=== PATIENT | female | born 1975 | race Caucasian/White ===

== ENCOUNTER 2022-10-19 15:50 | Emergency (ER) | payer MEDICAID ==
[2022-10-19 16:45] LABS: CHLORIDE,CL 101 mmol/L (98-107); SODIUM,NA 140 mmol/L (136-145)
[2022-10-19 16:47] LABS: ANION GAP 16.6 mmol/L (5-15); ESTIMATED GFR 90 mL/min (>=60)
[2022-10-19 16:51] VITALS: BP 131/98; PULSE 106
[2022-10-19 17:01] LABS: CORONAVIRUS COVID-19 NAA NEGATIVE (NEGATIVE)
[2022-10-19 17:02] LABS: RESPIRATORY SYNCYTIAL VIR NAA NEGATIVE (NEGATIVE)
[2022-10-19] MEDS ORDERED: predniSONE 20 MG Tab PO ONE (17:16)
== END 2022-10-19 17:35 | disposition home or self-care (01) ==
LOC: SUPCPDRO 15:50 → VM.ED 15:50
DX: R07.89 Other chest pain (principal); I10 Essential (primary) hypertension; K21.9 Gastro-esophageal reflux disease without esophagitis; F17.200 Nicotine dependence, unspecified, uncomplicated; E66.9 Obesity, unspecified; Z68.33 Body mass index [BMI] 33.0-33.9, adult; Z88.6 Allergy status to analgesic agent; Z88.2 Allergy status to sulfonamides; Z79.899 Other long term (current) drug therapy; Z20.822 Contact with and (suspected) exposure to COVID-19
CPT/HCPCS: 0241U; 71045; 80053; 84484; 85025; 93005; 93010; 99284; 99285; J7512

== ENCOUNTER 2023-06-04 09:00 | Inpatient (IN) | payer MEDICAID ==
[2023-06-04] MEDS ORDERED: Flumazenil 0.1 MG/ML 5 ML MDV IVPUSH PRN (11:22)
[2023-06-04 11:41] LABS: BASOPHILS PERCENT AUTO 0.5 % (0.2-1.2); EOSINOPHILS ABSOLUTE AUTO 0.1 x10^3/uL (0.0-0.5); EOSINOPHILS PERCENT AUTO 1.2 % (0.0-4.0); HEMATOCRIT 39.4 % (33.0-47.0); HEMOGLOBIN 12.7 g/dL (12.0-16.0); IMMATURE GRAN ABSOLUTE AUTO 0.02 x10^3/uL (0.00-0.07); LYMPHOCYTES ABSOLUTE AUTO 2.3 x10^3/uL (1.0-4.8); LYMPHOCYTES PERCENT AUTO 30.3 % (25.0-50.0); MEAN CORPUSCULAR HEMOGLOBIN 28.3 pg (26.0-32.0); MEAN CORPUSCULAR HGB CONC 32.2 g/dL (32.0-36.0); MEAN CORPUSCULAR VOLUME 87.9 fL (78.0-93.0); MONOCYTES ABSOLUTE AUTO 0.5 x10^3/uL (0.0-0.8); MONOCYTES PERCENT AUTO 6.9 % (2.0-11.0); NEUTROPHILS ABSOLUTE AUTO 4.5 x10^3/uL (1.8-7.7); NEUTROPHILS PERCENT AUTO 60.8 % (50.0-80.0); PLATELET COUNT,PLT 293 x10^3/uL (130-400); RED BLOOD CELL COUNT 4.48 x10^6/uL (4.00-5.50); WHITE BLOOD CELL COUNT,WBC 7.4 x10^3/uL (4.0-10.0)
[2023-06-04 11:57] LABS: PROTHROMBIN TIME 10.9 SEC (9.5-12.2)
[2023-06-04] MEDS: Pantoprazole 40 MG Vial IVPUSH SCH ×2 (12:01→22:51)
[2023-06-04 12:11] LABS: A/G RATIO 0.83; ALANINE AMINOTRANSFERASE,ALT 29 U/L (14-59); ALBUMIN 3.4 g/dL (3.4-5.0); ALKALINE PHOSPHATASE 96 U/L (46-116); ANION GAP 15.6 mmol/L (5-15); ASPARTATE AMNIOTRANSFERASE,AST 15 U/L (15-37); BILIRUBIN TOTAL 0.2 mg/dL (0.2-1.0); BLOOD UREA NITROGEN,BUN 8 mg/dL (7-18); CALCIUM 8.9 mg/dL (8.5-10.1); CARBON DIOXIDE,CO2 27 mmol/L (21-32); CHLORIDE,CL 101 mmol/L (98-107); CHOLESTEROL HDL 42 mg/dL (40-59); CHOLESTEROL LDL CALCULATED 187 mg/dL (0-130); CHOLESTEROL TOTAL 270 mg/dL (0-199); CREATININE 0.7 mg/dL (0.55-1.02); ETHANOL BLOOD MEDICAL 52 mg/dL (0-3); GLUCOSE RANDOM 285 mg/dL (70-99); POTASSIUM,K 3.6 mmol/L (3.5-5.1); PROTEIN TOTAL,TP 7.5 g/dL (6.4-8.2); SODIUM,NA 140 mmol/L (136-145); TRIGLYCERIDES 207 mg/dL (0-149)
[2023-06-04 12:12] LABS: ESTIMATED GFR 105 mL/min (>=60)
[2023-06-04] MEDS ORDERED: PHENobarbital Sodium 65 MG/ML SDV IVPUSH ONE (12:25)
[2023-06-04] MEDS: Nicotine 21 MG/24 Hr Patch TRDERM SCH (12:37)
[2023-06-04 12:43] LABS: HEMOGLOBIN A1C 9.4 % (<5.7)
[2023-06-04] MEDS ORDERED: Sodium Chloride 0.9% 1,000 ML IV ONE (12:45)
[2023-06-04 12:51] LABS: AMPHETAMINES SCREEN, URINE NEGATIVE (NEGATIVE); BARBITURATE SCREEN,URINE NEGATIVE (NEGATIVE); BENZODIAZEPINES SCREEN,URINE NEGATIVE (NEGATIVE); BUPRENORPHINE SCREEN,URINE NEGATIVE (NEGATIVE); COCAINE METABOLITES,URINE NEGATIVE (NEGATIVE); METHADONE SCREEN, URINE NEGATIVE (NEGATIVE); METHAMPHETAMINE SCREEN, URINE NEGATIVE (NEGATIVE); OXYCODONE SCREEN,URINE NEGATIVE (NEGATIVE); PCP SCREEN,URINE NEGATIVE (NEGATIVE); THC SCREEN,URINE 50 NG/ML NEGATIVE (NEGATIVE)
[2023-06-04] MEDS: Multivitamin Tab PO SCH (12:51)
[2023-06-04] MEDS: Thiamine 100 MG Tab PO SCH (12:51)
[2023-06-04] MEDS: Folic Acid 1 MG Tab PO SCH (12:51)
[2023-06-04] MEDS ORDERED: PHENobarbitaL sodium 260 MG in Sodium Chloride 0.9% 100 ML IV ONE (13:00)
[2023-06-04] MEDS: Sodium Chloride 0.9% 1,000 ML IV SCH ×2 (14:26→22:48)
[2023-06-04] MEDS ORDERED: FLU (Fluarix Quad) QS2023-24(6MOS UP)/PF 60 MCG/0.5 ML Syringe IM ONE (15:45)
[2023-06-04] MEDS: Ondansetron 4 MG/2 ML SDV IVPUSH PRN (17:28)
[2023-06-04] MEDS: Acetaminophen 325 MG Tab PO PRN (17:42)
[2023-06-04] MEDS ORDERED: Naltrexone 50 MG Tab PO SCH (21:00)
[2023-06-05 06:39] LABS: A/G RATIO 0.79; ALANINE AMINOTRANSFERASE,ALT 20 U/L (14-59); ALBUMIN 2.7 g/dL (3.4-5.0); ALKALINE PHOSPHATASE 85 U/L (46-116); ASPARTATE AMNIOTRANSFERASE,AST 13 U/L (15-37); BILIRUBIN TOTAL 0.2 mg/dL (0.2-1.0); BLOOD UREA NITROGEN,BUN 9 mg/dL (7-18); CALCIUM 8.3 mg/dL (8.5-10.1); CARBON DIOXIDE,CO2 27 mmol/L (21-32); CHLORIDE,CL 108 mmol/L (98-107); CREATININE 0.7 mg/dL (0.55-1.02); EST CRCL DRUG DOSING (CG) 69.06 mL/min; GLUCOSE RANDOM 269 mg/dL (70-99); POTASSIUM,K 4.6 mmol/L (3.5-5.1); PROTEIN TOTAL,TP 6.1 g/dL (6.4-8.2); SODIUM,NA 143 mmol/L (136-145)
[2023-06-05] MEDS: Sodium Chloride 0.9% 1,000 ML IV SCH ×2 (06:49→15:42)
[2023-06-05 06:51] LABS: ANION GAP 12.6 mmol/L (5-15); ESTIMATED GFR 105 mL/min (>=60); ETHANOL BLOOD MEDICAL < 3 mg/dL (0-3)
[2023-06-05] MEDS: Acetaminophen 325 MG Tab PO PRN ×3 (06:55→14:37)
[2023-06-05] MEDS: Ondansetron 4 MG/2 ML SDV IVPUSH PRN (06:57)
[2023-06-05] MEDS ORDERED: PHENobarbitaL sodium 130 MG in Sodium Chloride 0.9% 100 ML IV SCH (09:00)
[2023-06-05] MEDS ORDERED: PHENobarbital Sodium 65 MG/ML SDV IVPUSH SCH (09:00)
[2023-06-05] MEDS: Nicotine 21 MG/24 Hr Patch TRDERM SCH (09:51)
[2023-06-05] MEDS: Multivitamin Tab PO SCH (09:53)
[2023-06-05] MEDS: Folic Acid 1 MG Tab PO SCH (09:53)
[2023-06-05] MEDS: Thiamine 100 MG Tab PO SCH (09:53)
[2023-06-05] MEDS: Pantoprazole 40 MG Vial IVPUSH SCH (11:56)
[2023-06-05 14:29] VITALS: BP 152/77; PULSE 73
== END 2023-06-05 16:08 | disposition left against medical advice (07) | DRG 894 ==
LOC: VM.MS 10:55
PROVIDERS: ADMIT Nurse Practitioner Family; ATTEND Nurse Practitioner Family
DX: F10.131 Alcohol abuse with withdrawal delirium (principal); F33.0 Major depressive disorder, recurrent, mild; F15.10 Other stimulant abuse, uncomplicated; R56.9 Unspecified convulsions; T50.905A Adverse effect of unspecified drugs, medicaments and biological substances, initial encounter; E11.65 Type 2 diabetes mellitus with hyperglycemia; K21.9 Gastro-esophageal reflux disease without esophagitis; F17.210 Nicotine dependence, cigarettes, uncomplicated; F15.980 Other stimulant use, unspecified with stimulant-induced anxiety disorder; G47.33 Obstructive sleep apnea (adult) (pediatric); I10 Essential (primary) hypertension; Z79.899 Other long term (current) drug therapy; Z88.2 Allergy status to sulfonamides
CPT/HCPCS: 36415; 71046; 80053; 80061; 80305-QW; 80307; 82140; 83036; 83605; 84443; 85025; 85610; 93005; A9270-GY; C9113; J2405; J2560; J3360; J3490; J7030

== ENCOUNTER 2025-05-26 22:24 | Emergency (ER) | payer MEDICAID ==
[2025-05-27 00:15] VITALS: BP 136/81; PULSE 105
== END 2025-05-26 23:37 | disposition home or self-care (01) ==
LOC: VM.ED 22:24
DX: S01.512A Laceration without foreign body of oral cavity, initial encounter (principal); T74.61XA Adult forced labor exploitation, confirmed, initial encounter; Z88.8 Allergy status to other drugs, medicaments and biological substances; Z88.2 Allergy status to sulfonamides; I10 Essential (primary) hypertension; X58.XXXA Exposure to other specified factors, initial encounter
CPT/HCPCS: 12011; 99284; A9270; J2003; 12001